=== PATIENT | male | born 1970 | race Caucasian/White ===

== ENCOUNTER 2018-09-18 12:50 | Day surgery (SDC) | payer OTHER ==
[~2018-09-18] VITALS: Ht 177.8 cm; Wt 107.5 kg
[~2018-09-18 12:50] MED LIST: DHEA50 MG PO; LEVOTHYROXINE25 MCG PO; OXYCODON-ACETA1 EAC2 PO; PRILOSEC OTC20 MG PO; TESTONE CI200 MG/1 M IM
--- NOTE | 2018-09-18 17:11 | NUR ---
09/18/18 1711 Niharika Herrera 1708- PT TO PACU EYES OPEN, RESPONDS TO QUESTIONS, FOLLOWING COMMANDS. BREATHING EASY AND UNLABORED SP02>95% ON RA. DENIES P/N/V
--- NOTE | 2018-09-19 15:35 | OR ---
[facility] [address] [place], [place] [address] Signed DATE OF OPERATION: 09/18/2018 SURGEON: Martín Doherty MD PREOPERATIVE DIAGNOSES: 1. Diarrhea, history of cholecystectomy. 2. Known eosinophilic esophagitis. POSTOPERATIVE DIAGNOSES: 1. No evidence of colitis. 2. Small polyp of the sigmoid and rectum (excised). PROCEDURES PERFORMED: 1. Total colonoscopy to cecum with biopsy of cecum and rectum. 2. Cold morcellation polypectomy x2. ANESTHESIA: Intravenous sedation, fentanyl 100 mcg, Versed 7 mg. INDICATION: This 48-year-old white man is a patient of Dr. Moran of [place], [place]. He has undergone cholecystectomy in the past and has diarrhea. He has had no blood per rectum. He is also known to have eosinophilic esophagitis, which has been well managed medically. He is admitted at this time to undergo colonoscopy to better characterize the issues related to his diarrhea. The risks of bleeding, infection, and perforation were reviewed with him in detail. He understands and wished to proceed. FINDINGS: The prep was quite excellent. Complete colonoscopy was undertaken of the cecum without question. There was no sign of diverticular disease nor obvious colitis. He had 2 small polyps, both excised with cold morcellation technique. DESCRIPTION OF PROCEDURE: The patient was brought to the endoscopy suite and placed in lateral decubitus position, given intravenous sedation to the point of slurred speech and nystagmus. Digital rectal examination was normal. An Olympus video colonoscope was passed in the rectum and manipulated throughout the colon. There were no signs of diverticula in the sigmoid or left colon. Scope was ultimately advanced to the cecum. The ileocecal valve and appendiceal orifice were Electronically Signed By: MARTÍN DOHERTY MD 09/19/18 1535 PATIENT NAME: LUDMILA EDOUARD OPERATIVE REPORT DATE OF : 70 REPORT #: [id number] PHYSICIAN: MARTÍN DOHERTY MD PCP: DAYANA MORAN MD REPORT IS CONFIDENTIAL AND NOT TO BE RELEASED WITHOUT AUTHORIZATION [facility] [address], [place] [address] Signed normal. A biopsy was taken of the cecum to assess for occult colitis. The scope was withdrawn and examination throughout showed no sign of abnormality until the sigmoid where a small polyp was noted. It was probably adenomatous, though it was small. It was excised completely. This was accomplished with cold morcellation technique. Further withdrawal showed 2 hyperplastic polyps in the rectosigmoid, both were excised and passed in same container. Retroflexed view of the rectum was normal. Biopsies taken of the rectum to assess for occult colitis once again. Scope was removed and the patient was taken to recovery room in good condition. CONCLUDING DIAGNOSIS: Diarrhea, possibly related to cholecystectomy. Pathology report is pending on biopsies. PLAN: We will initiate Questran 1 g p.o. q.i.d. tapering to the lowest effective dose. We will see the patient back in the office in 4 to 6 weeks to assess his progress. MD MATHEW Frankel/OSKAR /[id number] cc: Dayana Moran MD Copies: DAYANA MORAN MD ~ Electronically Signed By: MARTÍN DOHERTY MD 09/19/18 1535 PATIENT NAME: LUDMILA EDOUARD OPERATIVE REPORT DATE OF : 70 REPORT #: [id number] PHYSICIAN: MARTÍN DOHERTY MD PCP: DAYANA MORAN MD REPORT IS CONFIDENTIAL AND NOT TO BE RELEASED WITHOUT AUTHORIZATION
== END 2018-09-18 17:43 | disposition home or self-care (01) ==
LOC: OPS 12:50 → DS 12:50 → OPS 14:00 → DS 14:00 → OPS 17:43
PROVIDERS: Surgery
PROC: 0DBN8ZZ Excision of Sigmoid Colon, Via Natural or Artificial Opening Endoscopic (ICD-10-PCS; 2018-09-18)
PROC: 0DBP8ZX Excision of Rectum, Via Natural or Artificial Opening Endoscopic, Diagnostic (ICD-10-PCS; 2018-09-18)
PROC: 0DBH8ZX Excision of Cecum, Via Natural or Artificial Opening Endoscopic, Diagnostic (ICD-10-PCS; principal; 2018-09-18 14:00)
DX: K63.5 Polyp of colon (principal); K21.0 Gastro-esophageal reflux disease with esophagitis; Z91.013 Allergy to seafood; Z90.49 Acquired absence of other specified parts of digestive tract
CPT/HCPCS: 99153; G0500; J2250; J3010; J7120

== ENCOUNTER 2022-03-01 12:57 | Day surgery (SDC) | payer OTHER ==
[~2022-03-01] VITALS: Ht 177.8 cm; Wt 106.6 kg
--- NOTE | 2022-03-01 14:07 | NUR ---
03/01/22 1407 Roxanna Calloway 1403-PATIENT ARRIVED TO PACU ON RA RR EVEN DENIES PAIN OR NAUSEA. PATEINT DOES HAVE HICCUPS HOB ELEVATED ABDOMEN SOFT. IVF INFUSING. PATIENT EDUCATED ON PASSING GAS
--- NOTE | 2022-03-04 13:32 | OR ---
[facility] [address] [place], [place] [address] Signed DATE OF OPERATION: 03/01/2022 SURGEON: Martín Doherty MD PREOPERATIVE DIAGNOSES: 1. Persistent diarrhea. 2. History of cholecystectomy with response to Questran. POSTOPERATIVE DIAGNOSES: 1. Hyperplastic polyps x3, rectosigmoid, an adenomatous appearing polyp per rectum x1. 2. No evidence of colitis. PROCEDURES: 1. Total colonoscopy to cecum with biopsy of cecum and rectum. 2. Cold morcellation polypectomy x4. ANESTHESIA: Intravenous sedation; fentanyl 100 mcg and Versed 8 mg. INDICATIONS: This 51-year-old white man is a patient of Dr. Dayana Moran, and known to me from the past having undergone colonoscopy in 2019. He is known to have reflux disease undergoing upper endoscopy in 2016 confirming hiatal hernia. The patient was noted to have biliary disease in 2016, underwent cholecystectomy. His biliary symptoms resolved entirely. The patient has had a fair amount of diarrhea following cholecystectomy. Questran was prescribed, which was beneficial, though he does not take it on a routine basis actually. He is admitted at this time to undergo colonoscopy understand the risks of bleeding, infection, and perforation. FINDINGS: The prep was quite good. Complete colonoscopy was undertaken of the cecum. He had 3 hyperplastic appearing polyps in the rectosigmoid and one probable adenomatous polyp in the low rectum, all were excised completely. There is no clear evidence of colitis or other findings that would account for diarrhea. DESCRIPTION OF PROCEDURE: The patient was brought to the endoscopy suite and placed in lateral decubitus position given intravenous sedation to the point of slurred speech and nystagmus. Digital rectal examination was normal. Full cardiopulmonary monitoring was maintained. An Olympus Electronically Signed By: MARTÍN DOHERTY MD 03/04/22 1332 PATIENT NAME: LUDMILA EDOUARD OPERATIVE REPORT DATE OF : 70 REPORT #: [id number] PHYSICIAN: MARTÍN DOHERTY MD PCP: DAYANA MORAN MD REPORT IS CONFIDENTIAL AND NOT TO BE RELEASED WITHOUT AUTHORIZATION [facility] [address] [place], [place] [address] Signed video colonoscope was passed into the rectum and manipulated throughout the colon, ultimately intubating the cecum itself. The ileocecal valve and appendiceal orifice were normal. Biopsies were taken of the cecum, though it appeared normal. The scope was then withdrawn. Examination throughout showed no sign of abnormality into the rectosigmoid, where four relatively small hyperplastic appearing polyps were noted. These were excised with cold morcellation technique. Further withdrawal showed a probable adenomatous polyp of the rectum, it was still quite small, was excised with cold morcellation technique as well. Additional biopsies were taken from the rectum to rule out occult colitis. The scope was removed. The patient was taken to the recovery room in good condition. CONCLUDING DIAGNOSES: 1. Polyps x4, one of which is likely adenoma. 2. No evidence of colitis. PLAN: Recommend use of Questran 4 g p.o. q.i.d. or lesser amount, so as to control diarrhea problem. If problems, I am happy to see him again. MD MATHEW Frankel/OSKAR /[id number] cc: Dayana Moran MD Copies: DAYANA MORAN MD ~ Electronically Signed By: MARTÍN DOHERTY MD 03/04/22 1332 PATIENT NAME: LUDMILA EDOUARD OPERATIVE REPORT DATE OF : 70 REPORT #: [id number] PHYSICIAN: MARTÍN DOHERTY MD PCP: DAYANA MORAN MD REPORT IS CONFIDENTIAL AND NOT TO BE RELEASED WITHOUT AUTHORIZATION
--- NOTE | 2022-03-06 15:21 | PATH ---
[facility] [address] [place], [place] [address] Signed SPECIMEN(S): A CECUM COLON BIOPSY SPECIMEN(S): B SIGMOID POLYP SPECIMEN(S): C RECTAL POLYP SPECIMEN(S): D RECTUM SPECIMEN SOURCE: A. CECUM COLON BIOPSY B. SIGMOID POLYP C. RECTAL POLYP D. RECTUM CLINICAL HISTORY: Hx: Diarrhea, upper quadrant pain. Post: Polyps x 4. FINAL PATHOLOGIC DIAGNOSIS: A. Cecum colon biopsy: - Polypoid fragments of benign colonic mucosa, negative for specific diagnostic abnormality. B. Sigmoid polyp: - Hyperplastic polyp (two fragments). C. Rectal polyp: - Hyperplastic polyp (two fragments). D. Rectum, biopsy: - Hyperplastic polyp (one fragment). JVR:[facility]:C2NR MICROSCOPIC EXAMINATION: Histologic sections of all submitted blocks are examined by light microscopy. These findings, together with the gross examination, support the pathologic diagnosis. GROSS DESCRIPTION: Four specimens are received in four containers, labeled "BK." A. The specimen, labeled "BK, cecum colon biopsies," is received in formalin and consists of three hirsch soft tissue fragments that measure 0.2-0.3 cm in greatest dimension. The specimen is entirely submitted in cassette (A1). B. The specimen, labeled "BK, sigmoid colon polyp," is received in formalin and consists of multiple hirsch soft tissue fragments that measure 0.1-0.2 cm in greatest dimension. The specimen is entirely submitted in cassette (B1). PATIENT NAME: LUDMILA EDOUARD PATHOLOGY DATE OF : 70 REPORT #: [id number] PHYSICIAN: CHARITY LEAL PCP: DAYANA HUA MD REPORT IS CONFIDENTIAL AND NOT TO BE RELEASED WITHOUT AUTHORIZATION [facility] [address] [place], [place] [address] Signed C. The specimen, labeled "BK, rectal polyp," is received in formalin and consists of two hirsch soft tissue fragments that measure 0.2-0.3 cm in greatest dimension. The specimen is entirely submitted in cassette (C1). D. The specimen, labeled "BK, rectal biopsy," is received in formalin and consists of one hirsch soft tissue fragment that measures 0.3 cm in greatest dimension. The specimen is entirely submitted in cassette (D1). VB (under the direct supervision of a pathologist) The Gross Description was prepared using a voice recognition system. The report was reviewed for accuracy; however, sound-alike word errors, addition and/or deletions may occur. If there is any question about this report, please contact Client Services. PERFORMING LABORATORY: The technical component was performed by [facility], [address] [place] [id number] (CLIA# [id number]). Professional interpretation was performed by [facility] - [facility], [address] [place] [id number] (CLIA#: [id number]). Diagnostician: Leo Emery MD Pathologist Electronically Signed 03/06/2022 Copies: ~ PATIENT NAME: LUDMILA EDOUARD PATHOLOGY DATE OF : 70 REPORT #: [id number] PHYSICIAN: CHARITY LEAL PCP: DAYANA HUA MD REPORT IS CONFIDENTIAL AND NOT TO BE RELEASED WITHOUT AUTHORIZATION
== END 2022-03-01 14:40 | disposition home or self-care (01) ==
LOC: OPS 12:57 → DS 12:57 → OPS 14:00
PROVIDERS: ATTEND Surgery
PROC: 0DBH8ZX Excision of Cecum, Via Natural or Artificial Opening Endoscopic, Diagnostic (ICD-10-PCS; principal; 2022-03-01 14:00)
DX: K63.5 Polyp of colon (principal); R19.7 Diarrhea, unspecified; K21.9 Gastro-esophageal reflux disease without esophagitis; Z90.49 Acquired absence of other specified parts of digestive tract
CPT/HCPCS: 99153; G0500; J2250; J3010; J7121

== ENCOUNTER 2023-11-23 10:40 | Emergency (ER) | payer OTHER ==
[~2023-11-23] VITALS: Ht 177.8 cm; Wt 111.1 kg
--- OUTSIDE RECORDS SUMMARY | ~2023-11-23 | XMS | Continuity of Care Document ---
Demographics + + + | Address | [address] | | | [place] [address] | + + + | Preferred Language | Unknown | + + + | Marital Status | | + + + | Uatsdin Affiliation | Unknown | + + + | Race | White | + + + | Ethnic Group | Unknown | + + + Author + + + | Author | [facility] | + + + | Organization | [facility] | + + + | Address | [address] | | | [place] [address] | + + + | Phone | | + + + Care Team Providers + + + + | Care Resaw Machine Operator Name | Role | Phone | + + + + Unavailable | Unavailable | + + + + Allergies No information. Encounters No information. Functional Status No information. Immunizations No information. Medications No information. Problems + + + + | date | description | facility | + + + + | 2023-09-24 00:00 | Obstructive sleep apnea | [facility] | | | (adult) (pediatric) | [facility] | + + + + | 2023-09-24 06:27:03 | Obstructive sleep apnea | [facility] | | | (adult) (pediatric) | [facility] | + + + + | 2023-09-24 06:27:03 | Body mass index (BMI) | [facility] | | | 35.0-35.9, adult | [facility] | + + + + | 2023-09-24 06:27:03 | Other specified counseling | [facility] | | | | [facility] | + + + + Procedures No information. Results/Labs No information. Social History +--------+ + + | date | description | facility | +--------+ + + Vital Signs No information."
[2023-11-23] MEDS ORDERED: LISINOPRIL10 MG PO (10:57)
[2023-11-23] MEDS ORDERED: MONTELUKAST SOD10 MG PO (10:57)
[2023-11-23] MEDS ORDERED: ondansetron HCL 4 MG/2 ML VIAL IV ONE (11:15)
[2023-11-23] MEDS ORDERED: SODIUM CHLORIDE 0.9% 1,000 ML IV PRN (11:15)
[2023-11-23] MEDS ORDERED: KETOROLAC TROMETHAMINE 30 MG/ML VIAL IV ONE (11:15)
[2023-11-23 11:32] LABS: BILIRUBIN, URINE NEGATIVE (negative); BLOOD/HGB, URINE NEGATIVE (Negative); KETONE, URINE NEGATIVE (Negative); LEUK ESTERASE, URINE NEGATIVE (negative); NITRITE, URINE NEGATIVE (negative)
[2023-11-23 11:39] LABS: BASOPHILS 0.8 % (0-2); EOSINOPHILS 2.5 % (0-6); HEMATOCRIT 43.8 % (35.0-50.0); HEMOGLOBIN 14.7 g/dL (12.0-18.0); LYMPHOCYTES 29.8 % (24-44); MCH 30.2 (27-36); MCHC 33.5 g/dl (30-36); MCV 89.9 fl (81-99); MONOCYTES 8.1 % (0-12); NEUTROPHILS 58.8 % (39-80); PLATELET COUNT 278 K/uL (140-440); RBC 4.87 M/ul (4.3-5.7); RDW 13.8 (10.5-15.0)
[2023-11-23 11:47] LABS: ALBUMIN/GLOBULIN RATIO 1.05 (1.1-2.4); ANION GAP 15.1 (7-21); BILIRUBIN, TOTAL 0.8 ng/dL (0.2-1.0); BUN/CREATININE RATIO 16.21 (6.0-28.6); CALCIUM 9.4 mg/dL (8.5-10.1); CREATININE, SERUM 1.11 mg/dL (0.70-1.30); POTASSIUM 4.1 mmol/L (3.5-5.1); PROTEIN, TOTAL 7.8 g/dL (6.4-8.2)
[2023-11-23] MEDS ORDERED: KETOROLAC TROME10 MG PO (13:01)
[2023-11-23 13:06] VITALS: BP 148/85
== END 2023-11-23 13:06 | disposition home or self-care (01) ==
LOC: ED 10:40
PROVIDERS: Emergency Medicine
DX: R10.31 Right lower quadrant pain (principal); Z91.013 Allergy to seafood; Z79.899 Other long term (current) drug therapy
CPT/HCPCS: 36415; 74176; 80053; 81003; 83690; 85025; 96374; 96375; 99284-25; J1885; J2405; J7030

== ENCOUNTER 2023-11-26 12:57 | Day surgery (SDC) | payer OTHER ==
[~2023-11-26] VITALS: Ht 177.8 cm; Wt 107.0 kg
[~2023-11-26 12:57] MED LIST changes: +IBLOOD GLUCOSE TEST STRIP 1 EA TEST VI PRN; +KETOROLAC TROME10 MG PO; +LACTATED RINGER'S 1,000 ML IV SCH; +LIDOCAINE HCL 1% 5 ML SDV INJ ONE; +LIDOCAINE HCL 4% 50 ML BTL TOP SCH; +LISINOPRIL10 MG PO; +MONTELUKAST SOD10 MG PO
[2023-11-26 13:26] VITALS: BP 159/78
[2023-11-26] MEDS ORDERED: fentaNYL citrate 100 MCG/2 ML VIAL ONE (14:07)
[2023-11-26] MEDS ORDERED: MIDAZOLAM HCL 5 MG/5 ML VIAL ONE (14:07)
--- NOTE | 2023-11-26 14:49 | NUR ---
11/26/23 1449 Julee Marcelo 1445 PT ARRIVED TO PACU ON RA, PT AWAKE AND TALKING TO RN. PT EASILY FALLS ASLEEP, O2 SAT LOW 90S WITH A SMALL AMOUNT OF SNORING.
[2023-11-26 15:11] VITALS: BP 136/76
--- NOTE | 2023-11-26 16:49 | OR ---
[facility] [address] [place], [place] [address] Signed DATE OF OPERATION: 11/26/2023 SURGEON: Martín Doherty MD PREOPERATIVE DIAGNOSES: Gastroesophageal reflux (symptoms controlled), possible history of eosinophilic esophagitis. POSTOPERATIVE DIAGNOSES: Small hiatal hernia without evidence of esophagitis or eosinophilic esophagitis; normal stomach and duodenum. PROCEDURE: Esophagogastroduodenoscopy with biopsy. ANESTHESIA: Intravenous sedation; fentanyl 100 mcg and Versed 7 mg. INDICATION: This 53-year-old white man is a patient of Dr. Dayana Moran. He is known to have gastroesophageal reflux symptoms and has been treated with PPI medications on a daily basis. He last underwent upper endoscopy in 2015 showing possible eosinophilic esophagitis based on distal esophageal biopsies, but at that time, routine midesophageal biopsies were not undertaken always. He does have occasions of diarrhea which have been attributed to other causes and currently is not bothered by diarrhea or dysphagia. He is admitted at this time to undergo upper endoscopy to assess the possibility of eosinophilic esophagitis, assess for esophageal healing based on prior endoscopic evaluations and assess for other peptic problems. He understands the risk of bleeding, infection, and perforation related to upper endoscopy and wished to proceed. FINDINGS: There is no evidence of esophagitis and certainly no stricture. There was no clinical evidence of eosinophilic esophagitis either. There was a small hiatal hernia. The stomach otherwise was normal, though there is some mild proximal gastritis. CLOtest was negative. The duodenum was normal. The outlet of the stomach is normal. PROCEDURE IN DETAIL: The patient was brought to the endoscopy suite and given topical lidocaine hypopharyngeal anesthesia, placed in the lateral decubitus position. He was given intravenous sedation to the point of slurred speech and nystagmus. A bite block was Electronically Signed By: MATRÍN DOHERTY MD 11/26/23 1649 PATIENT NAME: LUDMILA EDOUARD OPERATIVE REPORT DATE OF : 70 REPORT #: [id number] PHYSICIAN: MARTÍN DOHERTY MD PCP: DAYANA MORAN MD REPORT IS CONFIDENTIAL AND NOT TO BE RELEASED WITHOUT AUTHORIZATION [facility] [address] [place], [place] [address] Signed placed. An Olympus video upper endoscope was passed in the hypopharynx. The vocal cords were normal. The scope was advanced into the esophagus showing a completely normal esophagus including the distal portion. The scope was advanced to the stomach which was insufflated with air. Rugal folds were normal. Antrum was mildly inflamed, but certainly not ulcerated. Pylorus was normal. Scope was passed through into the duodenum. Biopsies were taken of the duodenum to assess for celiac disease. The scope was withdrawn and biopsy was then taken of the antrum for both DC and pathologic testing. Retroflexed view showed a small hiatal hernia. The scope was withdrawn and biopsies then taken of the distal esophagus and the mid esophagus, though both appeared entirely normal. Further withdrawal showed no other findings of concern. The patient was taken to the recovery room in good condition. CONCLUDING DIAGNOSIS: Hiatal hernia but no evidence of eosinophilic esophagitis or any esophagitis and certainly no stricture or Oconnor's epithelium. PLAN: Would recommend continued use of PPI for symptom control of reflux symptoms. He will return to the ongoing care of Dr. Dayana Moran. Martín Doherty MD JM/MODL /[id number] cc: Dayana Moran MD Copies: DAYANA MORAN MD ~ Electronically Signed By: MARTÍN DOHERTY MD 11/26/23 1649 PATIENT NAME: LUDMILA EDOUARD OPERATIVE REPORT DATE OF : 70 REPORT #: [id number] PHYSICIAN: MARTÍN DOHERTY MD PCP: DAYANA MORAN MD REPORT IS CONFIDENTIAL AND NOT TO BE RELEASED WITHOUT AUTHORIZATION
--- NOTE | 2023-11-28 16:04 | PATH ---
[facility] [address] [place], [place] [address] Signed SPECIMEN(S): A DUODENAL BIOPSY SPECIMEN(S): B ANTRUM BIOPSY SPECIMEN(S): C DISTAL ESOPHAGEAL BIOPSY SPECIMEN(S): D MID ESOPHAGEAL BIOPSY SPECIMEN SOURCE: A. DUODENAL BIOPSY B. ANTRUM BIOPSY C. DISTAL ESOPHAGEAL BIOPSY D. MID ESOPHAGEAL BIOPSY CLINICAL HISTORY: GERD with esophagitis, eosinophilic esophagitis, post cholecystectomy diarrhea, post hiatal hernia. FINAL PATHOLOGIC DIAGNOSIS: A. Duodenal biopsy: - Benign duodenal mucosa, negative for specific diagnostic abnormality. B. Antrum biopsy: - Benign gastric antral mucosa with focal slight chronic inflammation. - Negative for evidence of Helicobacter organisms on routine HE stained sections. C. Distal esophageal biopsy: - Benign esophageal mucosa, negative for increased epithelial eosinophils. - Negative for glandular epithelium. D. Mid esophageal biopsy: - Benign esophageal mucosa, negative for increased epithelial eosinophils. - Negative for glandular epithelium. PrernaVR:[place] MICROSCOPIC EXAMINATION: Histologic sections of all submitted blocks are examined by light microscopy. These findings, together with the gross examination, support the pathologic diagnosis. GROSS DESCRIPTION: A. The specimen, labeled and designated "Ronnie duodenal biopsy," is received in formalin and consists of 2 pieces of hirsch-pink, soft tissue ranging from 0.2-0.5 cm in greatest dimension and aggregating 0.5 x 0.3 x 0.2 cm. The specimen is filtered and submitted entirely in A1. PATIENT NAME: LUDMILA EDOUARD PATHOLOGY DATE OF : 70 REPORT #: [id number] PHYSICIAN: CHARITY LEAL PCP: DAYANA HUA MD REPORT IS CONFIDENTIAL AND NOT TO BE RELEASED WITHOUT AUTHORIZATION [facility] [address] [place], [place] [address] Signed B. The specimen, labeled and designated "Kollman, antrum biopsy," is received in formalin and consists of 3 pieces of hirsch-yellow, soft tissue each of which measures 0.2 cm in greatest dimension and together aggregate 0.8 x 0.2 x 0.2 cm. The specimen is filtered and submitted entirely in B1. C. The specimen, labeled and designated "Kollman, distal esophageal biopsy," is received in formalin and consists of 2 pieces of hirsch-white, friable, soft tissue ranging from 0.2-0.3 cm in greatest dimension and aggregating 0.4 x 0.2 x 0.1 cm. The specimen is filtered and submitted entirely in C1. D. The specimen, labeled and designated "Kollman, mid esophageal biopsy," is received in formalin and consists of 2 pieces of hirsch-white, friable, soft tissue ranging from 0.2-0.4 cm in greatest dimension and aggregating 0.5 x 0.3 x 0.1 cm. The specimen is filtered and submitted entirely in D1. Please note: Eosin is applied to all pieces of tissue in this case before processing. AM (under the direct supervision of a pathologist) The Gross Description was prepared using a voice recognition system. The report was reviewed for accuracy; however, sound-alike word errors, addition and/or deletions may occur. If there is any question about this report, please contact Client Services. PERFORMING LABORATORY: Technical component was performed by [facility], [address] [place] [id number] (CLIA# [id number]). Professional interpretation was performed by [facility] - [facility], [address] [place], [place] [address], [place] [address] (CLIA#: [id number]). Diagnostician: Leo Emery MD Pathologist Electronically Signed 11/28/2023 Copies: ~ PATIENT NAME: KYMBERLYCANDELARIALUDMILA PATHOLOGY DATE OF : 70 REPORT #: [id number] PHYSICIAN: [facility] PCP: DAYANA HUA MD REPORT IS CONFIDENTIAL AND NOT TO BE RELEASED WITHOUT AUTHORIZATION
== END 2023-11-26 15:19 | disposition home or self-care (01) ==
LOC: DS 12:57
PROVIDERS: ATTEND Surgery
PROC: 0DB68ZX Excision of Stomach, Via Natural or Artificial Opening Endoscopic, Diagnostic (ICD-10-PCS; 2023-11-26)
PROC: 0DB28ZX Excision of Middle Esophagus, Via Natural or Artificial Opening Endoscopic, Diagnostic (ICD-10-PCS; 2023-11-26)
PROC: 0DB38ZX Excision of Lower Esophagus, Via Natural or Artificial Opening Endoscopic, Diagnostic (ICD-10-PCS; 2023-11-26)
PROC: 0DB98ZX Excision of Duodenum, Via Natural or Artificial Opening Endoscopic, Diagnostic (ICD-10-PCS; principal; 2023-11-26 14:00)
DX: K21.00 Gastro-esophageal reflux disease with esophagitis, without bleeding (principal); K44.9 Diaphragmatic hernia without obstruction or gangrene; K29.70 Gastritis, unspecified, without bleeding; K91.5 Postcholecystectomy syndrome; Z79.899 Other long term (current) drug therapy
CPT/HCPCS: 99153; G0500; J2250; J3010; J7121